=== PATIENT | male | born 1985 | race Caucasian/White ===

== ENCOUNTER 2016-08-23 16:03 | Emergency (ER) | payer BC ==
[~2016-08-23] VITALS: Ht 172.7 cm; Wt 63.5 kg
== END 2016-08-23 18:25 | disposition short-term general hospital (02) ==
LOC: ER 16:03
DX: E86.0 Dehydration (principal); D72.829 Elevated white blood cell count, unspecified; K04.7 Periapical abscess without sinus; F17.210 Nicotine dependence, cigarettes, uncomplicated
CPT/HCPCS: J0696

== ENCOUNTER 2016-09-27 10:34 | Day surgery (SDC) | payer BC ==
[~2016-09-27] VITALS: Ht 167.6 cm; Wt 56.7 kg
== END 2016-09-27 14:00 | disposition short-term general hospital (02) ==
LOC: SURGOP 10:34
PROC: 0DJ08ZZ Inspection of Upper Intestinal Tract, Via Natural or Artificial Opening Endoscopic (ICD-10-PCS; principal; 2016-09-27)
DX: K29.70 Gastritis, unspecified, without bleeding (principal); F32.9 Major depressive disorder, single episode, unspecified; F17.210 Nicotine dependence, cigarettes, uncomplicated; Z88.8 Allergy status to other drugs, medicaments and biological substances; Z79.899 Other long term (current) drug therapy; Z98.890 Other specified postprocedural states
CPT/HCPCS: J2175; J2250

== ENCOUNTER → 2016-10-22 | Outpatient (CLI) | payer BC | END | disposition short-term general hospital (02) | LOC: CLSURG 04:14 | DX: K82.8 Other specified diseases of gallbladder (principal); R94.8 Abnormal results of function studies of other organs and systems ==

== ENCOUNTER 2016-10-29 06:59 | Day surgery (SDC) | payer BC ==
[~2016-10-29] VITALS: Ht 172.7 cm; Wt 55.8 kg
== END 2016-10-29 13:22 | disposition short-term general hospital (02) ==
LOC: SURGOP 06:59
PROC: 0FT44ZZ Resection of Gallbladder, Percutaneous Endoscopic Approach (ICD-10-PCS; principal; 2016-10-29)
DX: K82.8 Other specified diseases of gallbladder (principal); R10.11 Right upper quadrant pain; F17.210 Nicotine dependence, cigarettes, uncomplicated; F32.9 Major depressive disorder, single episode, unspecified; Z88.8 Allergy status to other drugs, medicaments and biological substances; Z79.899 Other long term (current) drug therapy
CPT/HCPCS: J0131; J0690; J1100; J1170; J1200; J2175; J2250; J2300; J2405; J2710; J2765; J3010

== ENCOUNTER → 2016-11-05 | Outpatient (CLI) | payer BC | END | disposition short-term general hospital (02) | LOC: CLSURG 07:48 | DX: Z48.815 Encounter for surgical aftercare following surgery on the digestive system (principal); Z90.49 Acquired absence of other specified parts of digestive tract; Z87.19 Personal history of other diseases of the digestive system ==